=== PATIENT | male | born 1980 | race Caucasian/White ===

== ENCOUNTER 2017-03-29 16:52 | Emergency (ER) | payer OTHER ==
[~2017-03-29] VITALS: Wt 75.0 kg
[2017-03-29] MEDS ORDERED: DEXAMETHASONE 10 MG/ML 1 ML INJ IM ONE (17:30)
[2017-03-29 17:55] LABS: ADD SCAN DIFF NO
[2017-03-29 18:00] LABS: BASOPHIL # 0.1 10^3/ul (0.0-0.1); BASOPHILS % 0.8 % (0.0-2.0); EOSINOPHILS # 0.3 10^3/ul (0.0-0.5); EOSINOPHILS % 3.3 % (0.0-7.0); HEMATOCRIT 44.6 % (42.0-52.0); HEMOGLOBIN 15.1 g/dl (14.0-18.0); LYMPHOCYTES # 3.3 10^3/ul (0.8-2.9); LYMPHOCYTES % 41.7 % (15.0-51.0); MEAN CORPUSCULAR HEMOGLOBIN 28.2 pg (29.0-33.0); MEAN CORPUSCULAR HGB CONC 33.9 g/dl (32.0-37.0); MEAN CORPUSCULAR VOLUME 83.4 fl (82.0-101.0); MEAN PLATELET VOLUME 11.7 fl (7.4-10.4); MONOCYTE # 0.6 10^3/ul (0.3-0.9); MONOCYTES % 7.6 % (0.0-11.0); NEUTROPHIL # 3.7 10^3/ul (1.6-7.5); NEUTROPHILS % 46.3 % (39.0-77.0); PLATELET COUNT 212 10^3/UL (140-415); RED BLOOD COUNT 5.35 10^6/ul (4.70-6.10); RED CELL DISTRIBUTION WIDTH 12.8 % (11.5-14.5); WHITE BLOOD COUNT 7.9 10^3/ul (4.8-10.8)
[2017-03-29] MEDS ORDERED: MED4DP PO (18:01)
--- NOTE | 2017-03-29 18:12 | ERD ---
ER Documentation Chief Complaint Date/Time DATE: 03/29/17 TIME: 18:02 Chief Complaint RASH TO TOTAL BODY X4DAYS HPI She is a 36-year-old male who presents to the emergency department for a body rash that started 4 days ago. Patient states initially the rashes on his face however now has spread throughout his body. Patient denies any fevers or chills. Patient describes the rash to be non-pruritic and non-painful. Patient denies any active bleeding or discharge from the lesions. Patient denied any recent URI symptoms including rhinorrhea, throat pain, cough. Patient denies any recent travel. Patient denies any recent antibiotic use. Patient does have children however they are not currently home with them nor did they recently have a rash. Patient denies any difficulty breathing, tongue swelling, throat swelling, or lip swelling. ROS All systems reviewed and are negative except as per history of present illness. Medications Home Meds Active Scripts Methylprednisolone* (Medrol* DOSE PACK) 4 Mg/Dose-Pack Tab.ds.pk, 4 MG PO . DIRECTED, #1 PACKET Prov:LAURA ARVIZU PA-C 03/29/17 Allergies Allergies: Coded Allergies: No Known Allergy (Unverified , 03/29/17) PMhx/Soc Medical and Surgical Hx: pt denies Medical Hx, pt denies Surgical Hx History of Surgery: No Anesthesia Reaction: No Hx Neurological Disorder: No Hx Respiratory Disorders: No Hx Cardiac Disorders: No Hx Psychiatric Problems: No Hx Miscellaneous Medical Probl: No Hx Alcohol Use: No Hx Substance Use: No Hx Tobacco Use: No Smoking Status: Never smoker FmHx Family History: No diabetes Physical Exam Vitals Vital Signs Date Time Temp Pulse Resp B/P Pulse Ox O2 Delivery O2 Flow Rate FiO2 03/29/17 17:00 98.6 72 20 138/76 99 Physical Exam GENERAL: Well-developed, well-nourished male. Appears in no acute distress. Speaking in full sentences. HEAD: Normocephalic, atraumatic. EYES: Pupils are equally reactive bilaterally. EOMs grossly intact. No conjunctival erythema. ENT: Moist mucous membranes. No uvula deviation. No kissing tonsils. No lip swelling. No tongue swelling. No throat closure. No strawberry tongue. No lesions noted on buccal surfaces or oropharynx. NECK: Supple. No meningismus. Normal range of motion of the neck. LUNG: Clear to auscultation bilaterally. No rhonchi, wheezing, rales or coarse breath sounds. HEART: Regular rate and rhythm. No murmurs, rubs or gallops. EXTREMITIES: Equal pulses bilaterally. No peripheral clubbing, cyanosis or edema. No unilateral leg swelling. NEUROLOGIC: Alert and oriented. Moving all four extremities without any difficulty. Normal speech. Steady gait. SKIN: Erythematous macular papular rash noted throughout the patient's scalp, face, bilateral extremities, torso and back. No active discharge or bleeding. Lesions appear to be at the same stage. Negative Nikolsky sign. No bulleyes lesions noted. No active desquamation of skin. Result Diagram: 03/29/17 1750 03/29/17 1750 Results 24 hrs Laboratory Tests Test 03/29/17 17:50 White Blood Count 7.910^3/ul Red Blood Count 5.3510^6/ul Hemoglobin 15.1g/dl Hematocrit 44.6% Mean Corpuscular Volume 83.4fl Mean Corpuscular Hemoglobin 28.2pg Mean Corpuscular Hemoglobin Concent 33.9g/dl Red Cell Distribution Width 12.8% Platelet Count 58853^3/UL Mean Platelet Volume 11.7fl Neutrophils % 46.3% Lymphocytes % 41.7% Monocytes % 7.6% Eosinophils % 3.3% Basophils % 0.8% Nucleated Red Blood Cells % 0.0/100WBC Neutrophils # 3.710^3/ul Lymphocytes # 3.310^3/ul Monocytes # 0.610^3/ul Eosinophils # 0.310^3/ul Basophils # 0.110^3/ul Nucleated Red Blood Cells # 0.010^3/ul Erythrocyte Sedimentation Rate 5mm/Hr Sodium Level 141mmol/L Potassium Level 4.2mmol/L Chloride Level 100mmol/L Carbon Dioxide Level 29mmol/L Anion Gap 16 Blood Urea Nitrogen 20mg/dl Creatinine 1.11mg/dl Glucose Level 105mg/dl Calcium Level 9.8mg/dl C-Reactive Protein 0.5mg/dl Current Medications Medications (Trade) Dose Ordered Sig/Evan Route PRN Reason Start Time Stop Time Status Last Admin Dose Admin Dexamethasone (Decadron) 10 mg ONCE ONCE IM 03/29/17 17:30 03/29/17 17:31 DC 03/29/17 17:48 Procedures/[facility] MEDICAL DECISION MAKING: This is a 36-year-old male presents with a total body rash 4 days. Patient denied any new environmental changes, foods, medications. Vital signs were reviewed. Patient was afebrile. Patient is not a diabetic. Skin exam revealed erythematous maculopapular lesions throughout the patient's body. Lesions appeared to be in the same size and stage. Negative Nikolsky sign. My supervising physician, Dr. Mcdonald, examined the patient as well. CBC showed no evidence of systemic infection or severe anemia. CMP showed no evidence of electrolyte abnormalities, severe acidosis, alkalosis, renal failure, or liver disease. ESR was within normal limits. CRP was within normal limits. At this time, the patient's rash is of unknown etiology. Given negative ESR and CRP, low suspicion for inflammatory process however unable to rule out. Patient was given Decadron here in the emergency department without any complications. I have a much lower clinical concern for necrotizing fasciitis, sepsis, Berto- Quentin syndrome, toxic epidural necrolysis, erythema multiforme, abscess, cellulitis, herpes zoster, fungal infection, insect bites, meningococcemia, anaphylaxis, hives. At this time unable to rule out any rheumatological or autoimmune disorders. Patient was advised that he should follow-up with his primary care physician and/or see a construction flagger for further management of his symptoms. Referral information provided. PRESCRIPTIONS: Medrol Dosepak DISCHARGE: At this time, patient is stable for discharge and outpatient management. I have advised the patient to avoid any new products, creams or possible allergens. I have advised the patient to avoid scratching the lesions. I have instructed the patient to follow-up with his/her primary care physician in 1-2 days. If symptoms persist, patient may need to see a construction flagger for further examinations and testing. I have instructed the patient to promptly return to the ER at any time for any new or worsening symptoms including increased pain, fever, redness, swelling, warmth, difficulty breathing or vomiting. The patient and/or family expressed understanding of and agreement with this plan. All questions were answered. Home care instructions were provided. Departure Diagnosis: Primary Impression: Rash Condition: Stable Patient Instructions: Self-Care for Skin Rashes Referrals: FREDA DEL CASTILLO MD,CINTIA RODRIGUEZ,KAYLYNN ALBRECHT,BRYCE Barber Additional Instructions: Call your primary care doctor TOMORROW for an appointment during the next 1-2 days.See the doctor sooner or return here if your condition worsens before your appointment time. Please follow-up with construction flagger for further management of your symptoms. Take blood work with. See referral information. Unable to rule out any rheumatological disorders at this time. LAURA ARVIZU PA-C Mar 29, 2017 18:11
[2017-03-29 18:19] LABS: C-REACTIVE PROTEIN 0.5 mg/dl (0.0-0.9); CALCIUM 9.8 mg/dl (8.4-10.2); CREATININE 1.11 mg/dl (0.61-1.24); POTASSIUM 4.2 mmol/L (3.5-5.1)
== END 2017-03-29 18:49 | disposition home or self-care (01) ==
LOC: FTE 16:52
DX: R21 Rash and other nonspecific skin eruption (principal)
CPT/HCPCS: 80048; 85025; 85651; 86140; J1100; 96372

== ENCOUNTER 2017-04-11 17:44 | Emergency (ER) | payer OTHER ==
[~2017-04-11] VITALS: Wt 89.0 kg
[~2017-04-11 17:44] MED LIST: MED4DP PO
[2017-04-11] MEDS ORDERED: PRED20TA PO (18:39)
[2017-04-11] MEDS ORDERED: DEXAMETHASONE 10 MG/ML 1 ML INJ IM ONE (19:00)
--- NOTE | 2017-04-11 20:39 | ERA ---
ER Documentation Chief Complaint Date/Time DATE: 04/11/17 TIME: 20:37 Chief Complaint GENERALIZED RASH X 10 DAYS HPI This is a 36-year-old male presents with a chief complaint of rash. Patient had the similar rash occurred 10 days ago. Patient was seen and treated by Shannan Quinteros PA-C. Patient states that the rash went away but has returned in the previous few days. Denies fever, rapid progression of symptoms, recent antibiotic use, symptomatic close contacts, diabetes, pruritus, pain, skin opening or history of a bite. Patients vaccination status is up to date. No recent travel. Nursing notes have been reviewed and are consistent with history given ROS All systems reviewed and are negative except as per history of present illness. Medications Home Meds Active Scripts Prednisone* (Prednisone*) 20 Mg Tab, 40 MG PO DAILY for 4 Days, TAB Prov:CINTIA SCHWARZ PA-C 04/11/17 Methylprednisolone* (Medrol* DOSE PACK) 4 Mg/Dose-Pack Tab.ds.pk, 4 MG PO . DIRECTED, #1 PACKET Prov:LAURA QUINTEROS PA-C 03/29/17 Allergies Allergies: Coded Allergies: No Known Allergy (Unverified , 03/29/17) PMhx/Soc History of Surgery: No Anesthesia Reaction: No Hx Neurological Disorder: No Hx Respiratory Disorders: No Hx Cardiac Disorders: No Hx Psychiatric Problems: No Hx Miscellaneous Medical Probl: No Hx Alcohol Use: No Hx Substance Use: No Hx Tobacco Use: No Smoking Status: Never smoker Physical Exam Vitals Vital Signs Date Time Temp Pulse Resp B/P Pulse Ox O2 Delivery O2 Flow Rate FiO2 04/11/17 17:46 18 142/83 99 Physical Exam Const: Healthy-appearing. Well-nourished. Well-developed. No acute distress. Skin: Generalized maculopapular rash sparing the head, palms and soles. No mucosal involvement. Ext: No edema or palpable cord. Normal movement of all extremities grossly observed. Neur: Awake, alert and oriented x3. Neurovascularly intact bilaterally. Oral: No oral edema visualized. Mucous membranes moist and pink. Head: Normocephalic, Atraumatic. Eyes: Non-injected; No discharge. EOMI and KATE bilaterally. Ears: Normal External Ears, EACs clear, TM normal bilaterally without erythema. Nose: Normal external nose; no discharge, or sinus tenderness. Neck: No cervical lymphadenopathy, masses or goiter palpated. ~ No meningismus. Pulm: Good air movement in upper and lower respiratory tracts. No dyspnea, stridor, tripoding or drooling. Clear to auscultation bilaterally. Cardio: Regular rate and rhythm; No murmurs, gallops or rubs auscultated. No JVD grossly observed. No cyanosis. Capillary refill less than 2 seconds. Abd: Soft, non tender, non distended. No guarding, masses. Normal bowel sounds. MS: Normal motor strength, normal tone with gross examination. Back: No midline, flank or CVA tenderness. Psych: Normal Mood and Affect. Results 24 hrs Current Medications Medications (Trade) Dose Ordered Sig/Evan Route PRN Reason Start Time Stop Time Status Last Admin Dose Admin Dexamethasone (Decadron) 10 mg ONCE ONCE IM 04/11/17 19:00 04/11/17 19:01 DC Procedures/MDM 36-year-old male present with a generalized nonpruritic nonpainful maculopapular rash as described in history and physical examination. Patient was given Decadron 10 mg 10 days ago with resolution of symptoms. Patient was given the same treatment here at his request. I have recommended the patient follow-up with dermatology within the next week. Patient verbally acknowledged that he understands and agrees with the recommendations and plan of management. Patient will be treated outpatient with prednisone 10 mg 4 days. I will suspicion for serious bacterial illness, GEN, stress, EM whether potential life- threatening skin conditions at this time. I have spoke with the patient regarding their condition and future management. They have verbally responded that they understand their status and treatment plan. The patients vitals are stable, and their current condition is appropriate for discharge. The patient will be given discharge instructions with return precautions. Departure Diagnosis: Primary Impression: Rash and other nonspecific skin eruption Condition: Stable Patient Instructions: Managing Atopic Dermatitis Referrals: ROS HAWKINS MD,KHADAR DEL CASTILLO,FREDA SKELTON,CINTIA RODRIGUEZ,KAYLYNN PARRA,BRYCE LYNN Additional Instructions: Follow up with your PCP within the next 1-3 days for a more thorough evaluation and a possible referral to a specialist. Return the the emergency department immediately if symptoms worsen or change. If you have any questions regarding medications, ask your pharmacist or us before you leave. If any adverse reactions occur while taking your medications, discontinue the treatment and return to the emergency department immediately. Take your medications as directed, and complete the entire course of treatment. CINTIA SCHWARZ PA-C Apr 11, 2017 20:39
== END 2017-04-11 19:17 | disposition home or self-care (01) ==
LOC: FTE 17:44
DX: R21 Rash and other nonspecific skin eruption (principal)
CPT/HCPCS: 99283; J1100

== ENCOUNTER 2017-06-01 20:21 | Emergency (ER) | payer OTHER ==
[~2017-06-01] VITALS: Ht 165.1 cm; Wt 78.0 kg
[~2017-06-01 20:21] MED LIST changes: +PRED20TA PO
[2017-06-01 20:25] VITALS: Ht 165.1 cm; Wt 78.0 kg
[2017-06-01] MEDS ORDERED: ASPIRIN 325 MG TAB PO STA (21:17)
[2017-06-01] MEDS ORDERED: ALBUTEROL 0.083% (NEB) 2.5 MG/3 ML AMP HHN STA (21:20)
[2017-06-01] MEDS ORDERED: IPRATROPIUM (NEB) 0.5 MG/2.5 ML AMP HHN ONE (21:30)
[2017-06-01 22:32] LABS: URINE BLOOD (Dip) POC Negative (NEGATIVE)
[2017-06-01 22:44] LABS: BASOPHIL # 0.1 10^3/ul (0.0-0.1); BASOPHILS % 0.6 % (0.0-2.0); EOSINOPHILS # 0.2 10^3/ul (0.0-0.5); EOSINOPHILS % 2.9 % (0.0-7.0); HEMATOCRIT 44.9 % (42.0-52.0); HEMOGLOBIN 15.3 g/dl (14.0-18.0); LYMPHOCYTES # 4.2 10^3/ul (0.8-2.9); MEAN CORPUSCULAR HEMOGLOBIN 27.8 pg (29.0-33.0); MEAN CORPUSCULAR HGB CONC 34.1 g/dl (32.0-37.0); MEAN CORPUSCULAR VOLUME 81.6 fl (82.0-101.0); MEAN PLATELET VOLUME 11.9 fl (7.4-10.4); MONOCYTE # 0.7 10^3/ul (0.3-0.9); MONOCYTES % 8.2 % (0.0-11.0); NEUTROPHIL # 2.9 10^3/ul (1.6-7.5); NEUTROPHILS % 36.2 % (39.0-77.0); PLATELET COUNT 210 10^3/UL (140-415); RED CELL DISTRIBUTION WIDTH 12.6 % (11.5-14.5)
[2017-06-01 23:03] LABS: ALANINE AMINOTRANSFERASE 38 IU/L (13-69); ALBUMIN 4.7 g/dl (3.3-4.9); ALKALINE PHOSPHATASE 94 IU/L (42-121); ANION GAP 16 (8-16); ASPARTATE AMINO TRANSFERASE 22 IU/L (15-46); BILIRUBIN,INDIRECT 0.1 mg/dl (0-1.1); BILIRUBIN,TOTAL 0.1 mg/dl (0.2-1.3); BLOOD UREA NITROGEN 19 mg/dl (7-20); CARBON DIOXIDE 27 mmol/L (21-31); CHLORIDE 104 mmol/L (97-110); CREATININE 0.96 mg/dl (0.61-1.24); GLUCOSE 105 mg/dl (70-220); POTASSIUM 3.7 mmol/L (3.5-5.1); SODIUM 143 mmol/L (135-144); TOTAL PROTEIN 8.3 g/dl (6.1-8.1)
[2017-06-01 23:14] LABS: B-TYPE NATRIURETIC PEPTIDE 47 PG/ML (0-125)
[2017-06-01 23:17] LABS: TROPONIN-I < 0.012 ng/ml (0.00-0.12)
--- NOTE | 2017-06-01 23:32 | ERD ---
ER Documentation Chief Complaint Date/Time DATE: 06/01/17 TIME: 23:23 Chief Complaint SOB with exertion x 1 week, denies pain HPI This 36-year-old male patient presents to emergency department today complaining of shortness of breath while ambulating, patient reports that he has had these symptoms in the past has undergone cardiovascular evaluation with the poll watcher who suggested pulmonary function testing. Patient has not had any testing done at this time and did not follow-up. Patient reports recently he has been experiencing increased shortness of breath while ambulating up and down stairs. Symptoms seem to have been exacerbated over the last 7 days with activity. He denies any chest pain, palpitations, or dizziness. Patient denies smoking, history of asthma, nausea, vomiting, fever, chills denies any recent surgeries ROS All systems reviewed and are negative except as per history of present illness. Medications Home Meds Active Scripts Prednisone* (Prednisone*) 20 Mg Tab, 40 MG PO DAILY for 4 Days, TAB Prov:CINTIA SCHWARZ PA-C 04/11/17 Methylprednisolone* (Medrol* DOSE PACK) 4 Mg/Dose-Pack Tab.ds.pk, 4 MG PO . DIRECTED, #1 PACKET Prov:LAURA ARVIZU PA-C 03/29/17 Allergies Allergies: Coded Allergies: No Known Allergy (Unverified , 03/29/17) PMhx/Soc Medical and Surgical Hx: pt denies Surgical Hx History of Surgery: No Anesthesia Reaction: No Hx Neurological Disorder: No Hx Respiratory Disorders: No Hx Cardiac Disorders: No Hx Psychiatric Problems: No Hx Miscellaneous Medical Probl: Yes (resolved DM 2) Hx Alcohol Use: No Hx Substance Use: No Hx Tobacco Use: Yes Smoking Status: Former smoker Physical Exam Vitals Vital Signs Date Time Temp Pulse Resp B/P Pulse Ox O2 Delivery O2 Flow Rate FiO2 06/01/17 21:56 72 18 97 21 06/01/17 20:25 98.8 76 16 148/83 100 Vitals stable, triage notes reviewed Physical Exam Const: Nourished, well-hydrated, well-appearing no acute distress Head: Atraumatic Eyes: ENT: Neck: Resp: Respirations even, chest rise and fall symmetrically, breath sounds cleared with diminished bases wheezes with forced expiration Cardio: S1-S2 no S3-S4 regular rate and rhythm, no murmurs Abd: Soft, nondistended, nontender no epigastric tenderness, Skin: No petechiae or rashes Back: Ext: No cyanosis, or edema Neur: Awake and alert Psych: Normal Mood and Affect Result Diagram: 06/01/17221206/01/172212 Results 24 hrs Laboratory Tests Test 06/01/17 22:13 06/01/17 22:39 White Blood Count 8.010^3/ul Red Blood Count 5.5010^6/ul Hemoglobin 15.3g/dl Hematocrit 44.9% Mean Corpuscular Volume 81.6fl Mean Corpuscular Hemoglobin 27.8pg Mean Corpuscular Hemoglobin Concent 34.1g/dl Red Cell Distribution Width 12.6% Platelet Count 44501^3/UL Mean Platelet Volume 11.9fl Neutrophils % 36.2% Lymphocytes % 52.0% Monocytes % 8.2% Eosinophils % 2.9% Basophils % 0.6% Nucleated Red Blood Cells % 0.0/100WBC Neutrophils # 2.910^3/ul Lymphocytes # 4.210^3/ul Monocytes # 0.710^3/ul Eosinophils # 0.210^3/ul Basophils # 0.110^3/ul Nucleated Red Blood Cells # 0.010^3/ul Sodium Level 143mmol/L Potassium Level 3.7mmol/L Chloride Level 104mmol/L Carbon Dioxide Level 27mmol/L Anion Gap 16 Blood Urea Nitrogen 19mg/dl Creatinine 0.96mg/dl Glucose Level 105mg/dl Calcium Level 10.0mg/dl Total Bilirubin 0.1mg/dl Direct Bilirubin 0.00mg/dl Indirect Bilirubin 0.1mg/dl Aspartate Amino Transf (AST/SGOT) 22IU/L Alanine Aminotransferase (ALT/SGPT) 38IU/L Alkaline Phosphatase 94IU/L Troponin I < 0.012ng/ml B-Type Natriuretic Peptide 47PG/ML Total Protein 8.3g/dl Albumin 4.7g/dl Globulin 3.60g/dl Albumin/Globulin Ratio 1.30 Bedside Urine pH (LAB) 5.5 Bedside Urine Protein (LAB) Negative Bedside Urine Glucose (UA) Negative Bedside Urine Ketones (LAB) Negative Bedside Urine Blood Negative Bedside Urine Nitrite (LAB) Negative Bedside Urine Leukocyte Esterase (L Negative Current Medications Medications (Trade) Dose Ordered Sig/Evan Route PRN Reason Start Time Stop Time Status Last Admin Dose Admin Aspirin (Aspirin) 325 mg ONCE STAT PO 06/01/17 21:17 06/01/17 21:20 DC 06/01/17 21:58 Albuterol (Proventil 0.083% (Neb)) 5 mg ONCE STAT HHN 06/01/17 21:20 06/01/17 21:21 DC 06/01/17 21:53 Ipratropium [place] (Atrovent 0.02% (Neb)) 0.5 mg ONCE ONCE HHN 06/01/17 21:30 06/01/17 21:31 DC 06/01/17 21:53 Interpretation text CBC shows no evidence of hemorrhage or infection Chemistry shows no evidence of significant electrolyte abnormalities or renal insufficiency Cardiac biomarkers show no evidence of acute myocardial injury or coronary ischemia BNP shows no evidence of acute congestive heart failure, and or volume overload. Procedures/MDM EKG: Supervising physician Dr. Castro Rate/Rhythm: Normal Sinus Rhythm 61 bpm no ectopy QRS, ST, T-waves: No changes consistent w/ acute ischemia Impression: No evidence of ischemia or arrhythmia PROCEDURE: CHEST - 2 VIEW CLINICAL INDICATION: 36-year-old male with shortness of breath. TECHNIQUE: PA and lateral views of the chest were performed. The images were reviewed on a PACS workstation. COMPARISON: None. FINDINGS: The cardiomediastinal silhouette has a normal appearance. There is no evidence for an infiltrate. There is no evidence for congestive heart failure. There is no evidence for pneumothorax. The osseous structures are intact. IMPRESSION: No evidence for active cardiopulmonary disease. Electronically viewed and signed by .Sai Harley MD, on 06/01/2017 23:39 This 36-year-old male patient presents to emergency department with increased shortness of breath with exertion. Patient reports that this is a recurrent symptom that he has sought medical attention from a poll watcher, patient reports he had stress testing and was told to follow-up with pulmonology patient reports that he has not ever seen a national sales. Denies asthma, COPD , fever chills chest pain, or smoking. Today's physical exam includes ECG normal sinus rhythm at a ventricular rate of 61 bpm no ectopy. DC without evidence of infection or anemia, chemistry without evidence of electrolyte imbalance or renal insufficiency. Troponin less than 0.012. Repeat troponin is not indicated. BNP has no symptoms of overload or CHF. Urinalysis negative for evidence of infection. Patient receives albuterol, Atrovent hand-held nebulized treatment reports increased aeration after breathing treatment. Chest x-ray radiologist's interpretation the cardiomediastinal silhouette has a normal appearance. There is no evidence of infiltrate. There is no evidence of congestive heart failure. There is no evidence for pneumothorax. The osseous structures are intact. Impression is no evidence of active pulmonary disease. Plan to discharge patient home with an albuterol inhaler. Instructed to use 30 minutes prior to activity, follow-up with primary care physician for pulmonary function test, return to emergency department for shortness of breath chest pain palpitations or dizziness. Patient is stable with no new complaints during ER course, clinically there is no current evidence to suggest pneumonia, CHF, acute coronary syndromes, pulmonary embolism or any other emergent condition appearing to require further evaluation or hospitalization. I feel the patient is stable for discharge at this time. I have discussed results, examination findings, the treatment plan with the patient and family present prior to discharge. Indications for emergent reevaluation, side effects of medication were also discussed. All questions were answered. Patient verbalizes understanding and agrees with plan of care. Departure Diagnosis: Primary Impression: Shortness of breath Condition: Good Patient Instructions: Coping with Shortness of Breath: Controlling Stress [facility] Additional Instructions: Thank you for for coming to [facility] for your care today. Please ask your nurse or provider if you have questions about your care today and do not leave until all your questions have been answered. Please use any medications given as directed and follow-up with your doctor (or the doctor you were referred to) in the next 2-3 days. If you do not have a primary care doctor you may follow up at the [facility] (listed below). You may also use motrin and tylenol as needed for fever and/or pain unless instructed otherwise by your provider or nurse. Indications for more urgent follow-up have been discussed, but you may return to the Emergency Department at ANY time for any worrisome or worsening symptoms. If you have abdominal pain, please know that no test or exam you received is perfect and you should follow up within 8 hours for continued pain. If you had any imaging studies today, such as an X-Ray or CT Scan, these studies will be reviewed later by a radiologist. You will be called if there are important findings that were not identified today, so make sure the contact information you provided at registration is correct. If you received any narcotic pain control medicine today, such as Vicodin, Morphine or Dilaudid, your coordination and judgment may be affected for a number of hours. Please do not drive or operate heavy machinery, and you may want someone to assist you at home. If you were given a prescription for narcotic medication, be aware that it is very addictive- use sparingly and only if necessary. TOMAS BRADY Jun 01, 2017 23:32
--- NOTE | 2017-06-01 23:39 | RADRPT ---
PROCEDURE: CHEST - 2 VIEW CLINICAL INDICATION: 36-year-old male with shortness of breath. TECHNIQUE: PA and lateral views of the chest were performed. The images were reviewed on a PACS w orkstation. COMPARISON: None. FINDINGS: The cardiomediastinal silhouette has a normal appearance. There is no evidence for an infiltrate. There is no evidence for congestive heart failure. There is no evidence for pneumothorax. The osseou s structures are intact. IMPRESSION: No evidence for active cardiopulmonary disease. .Sai Harley MD, MD Date Time Electronically viewed and signed by .Sai Harley MD, on 06/01/2017 23:39 .M/
[2017-06-02] MEDS ORDERED: ALBU8.5H3 INH (00:06)
[2017-06-02 00:33] VITALS: BP 113/80; PULSE 56; RESP 16
== END 2017-06-02 00:36 | disposition home or self-care (01) ==
LOC: FTE 20:21
DX: R06.02 Shortness of breath (principal); Z87.891 Personal history of nicotine dependence
CPT/HCPCS: 36415; 71020; 80053; 81003; 83880; 84484; 85025; 93005; 94664

== ENCOUNTER 2018-01-16 13:49 | Emergency (ER) | END 2018-01-16 18:50 | disposition home or self-care (01) ==